=== PATIENT | male | born 1985 | race Caucasian/White ===

== ENCOUNTER 2019-11-18 16:09 | Emergency (ER) | payer MEDICAID ==
[~2019-11-18] VITALS: Ht 175.3 cm; Wt 67.1 kg
[2019-11-18 16:26] VITALS: BP 139/81
--- NOTE | 2019-11-18 16:40 | NUR ---
LATE NOTE ENTRY FOR 1630: Pt sitting on [facility]. Pt refusing to change in to gown. Pt states, "Why?, I am here for manic depression, I am hearing voices." Pt denies SI and HI.
--- NOTE | 2019-11-18 16:59 | NUR ---
Pt and pt's personal belongings not in room at this time.
--- NOTE | 2019-11-18 17:11 | NUR ---
Pt not in room at this time. Pt eloped. Pt left with all personal belongings.
== END 2019-11-18 17:13 | disposition left against medical advice (07) ==
LOC: ED 17:07
DX: R44.3 Hallucinations, unspecified (principal); Z53.21 Procedure and treatment not carried out due to patient leaving prior to being seen by health care provider

== ENCOUNTER 2020-01-10 21:06 | Emergency (ER) | payer MEDICAID ==
[~2020-01-10] VITALS: Ht 175.3 cm; Wt 74.0 kg
[2020-01-10] MEDS ORDERED: PROPARACAINE OPHTH 0.5%, 15ML LEFTEYE STA (21:25)
[2020-01-10] MEDS ORDERED: PROPARACAINE OPHTH 0.5%, 15ML ONE (21:29)
[2020-01-10 22:34] VITALS: BP 127/85
== END 2020-01-10 22:36 | disposition home or self-care (01) ==
LOC: ED 21:32
DX: T15.02XA Foreign body in cornea, left eye, initial encounter (principal); X58.XXXA Exposure to other specified factors, initial encounter; Y93.89 Activity, other specified; Y92.89 Other specified places as the place of occurrence of the external cause; Y99.8 Other external cause status
CPT/HCPCS: 65222; 99283; 99284